=== PATIENT | male | born 1985 | race Asian ===

== ENCOUNTER 2019-08-06 19:25 | Emergency (ER) | payer OTHER ==
[~2019-08-06] VITALS: Ht 182.9 cm; Wt 90.7 kg
--- NOTE | 2019-08-06 20:17 | NUR ---
XRAY IN PROGRESS AT THE BEDSIDE.
[2019-08-06] MEDS ORDERED: IBUPROFEN 600 MG TABLET PO ONE (20:18)
[2019-08-06] MEDS: IBUPROFEN 600 MG TABLET PO ONE (20:20)
--- NOTE | 2019-08-06 20:59 | NUR ---
CALLED YOHANNES RE: XRAY.
--- NOTE | 2019-08-06 21:14 | NUR ---
Henry LOPEZ PA-C IS AT THE BEDSIDE SPEAKING TO THE PT RE: XRAY FINDINGS.
--- NOTE | 2019-08-06 21:17 | NUR ---
ALYSSA EMT IS AT THE BEDSIDE FOR POSTERIOR LONG ARM ORTHOGLASS SPLINT.
[2019-08-06 21:41] VITALS: BP 127/65
== END 2019-08-06 21:41 | disposition home or self-care (01) ==
LOC: ER 19:31
DX: S52.122A Displaced fracture of head of left radius, initial encounter for closed fracture (principal); W18.39XA Other fall on same level, initial encounter; Y93.23 Activity, snow (alpine) (downhill) skiing, snowboarding, sledding, tobogganing and snow tubing; Y92.89 Other specified places as the place of occurrence of the external cause; Y99.8 Other external cause status
CPT/HCPCS: 73080-TC